=== PATIENT | female | born 1955 | race Caucasian/White ===

== ENCOUNTER 2018-07-20 11:51 | Day surgery (SDC) | payer MEDICARE, OTHER ==
[2018-07-20 12:55] LABS: Anisocytosis Slight; Basophils # (A) 0.1 k/uL (0-0.2); Basophils % (A) 1 %; Eosinophils # (A) 0.4 k/uL (0-0.7); Eosinophils % (A) 3 %; HCT 37.8 % (34.0-46.0); HGB 11.1 gm/dL (11.4-16.0); Hypochromasia Marked; Lymphocytes # (A) 1.5 k/uL (1.0-4.8); Lymphocytes % (A) 15 %; MCHC 29.5 g/dL (31.0-37.0); Macrocytosis Marked; Mean Platelet Volume 8.3; Monocytes # (A) 0.9 k/uL (0-1.0); Monocytes % (A) 9 %; Neutrophils # (A) 7.4 k/uL (1.3-7.7); Neutrophils % (A) 71 %; Platelet Count 218 k/uL (150-450); RDW 16.5 % (11.5-15.5); WBC 10.5 k/uL (3.8-10.6)
[2018-07-20 13:07] LABS: Albumin 3.1 g/dL (3.5-5.0); Anion Gap 9 mmol/L; Calcium 9.2 mg/dL (8.4-10.2); Carbon Dioxide 16 mmol/L (22-30); Chloride 116 mmol/L (98-107); Glucose 101 mg/dL (74-99); Sodium 141 mmol/L (137-145); Total Bilirubin 1.9 mg/dL (0.2-1.3); Total Protein 6.5 g/dL (6.3-8.2)
[2018-07-20 13:08] LABS: ALT 38 U/L (9-52); AST 87 U/L (14-36); Alkaline Phosphatase 145 U/L (38-126); Blood Urea Nitrogen 11 mg/dL (7-17); Potassium 4.7 mmol/L (3.5-5.1)
[2018-07-20 13:19] LABS: Poikilocytosis (M) Present; Polychromasia Present; Target Cells Present; Toxic Vacuolation Present
[2018-07-20 13:20] LABS: Large Platelets Present
[2018-07-20 13:33] LABS: INR 1.3 (<1.2); Prothrombin Time 12.6 sec (9.0-12.0)
[2018-07-20 13:51] VITALS: RESP 16; TEMP 97.6
[2018-07-20] MEDS: ALBUMIN HUMAN 25% 50 ML in EMPTY BAG 1 BAG IVPB SCH ×2 (15:18→15:29)
[2018-07-20 15:47] VITALS: BP 119/71; PULSE 82
[2018-07-21 19:43] LABS: Total Protein, Body Fluid 653 mg/dL
--- NOTE | 2018-07-27 08:58 | US ---
Therapeutic paracentesis. DATE OF EXAM: 07/20/2018 CLINICAL HISTORY: Ascites The procedure was discussed with the patient. The risks, complications, benefits, and alternatives we re discussed and any questions were answered. Informed consent was obtained. The patient was placed s upine on the ultrasound table and prepped and draped in the usual sterile fashion. All elements of maximal barrier technique were utilized. Under ultrasound guidance, access into the right lower quadrant was obtained, via the paracentesis catheter system and direct ultrasound guidanc e. Approximately 5.3 liters of straw-colored fluid was removed. The patient was stable throughout the pr ocedure and remained stable upon discharge from Department of Radiology. IMPRESSION: Successful therapeutic paracentesis under ultrasound guidance.
== END 2018-07-20 15:54 | disposition home or self-care (01) ==
LOC: RADPROMAIN 11:51
PROVIDERS: ATTEND Physician Assistant
DX: K74.60 Unspecified cirrhosis of liver (principal); R18.8 Other ascites
CPT/HCPCS: 88108; 88305; 80053; 85025; 85610; 82042; 82105; 82945; 83615; 84157; 49083; P9047

== ENCOUNTER 2018-08-18 11:42 | Day surgery (SDC) | payer MEDICARE ==
[2018-08-18 13:06] LABS: Mean Platelet Volume 8.2; Platelet Count 202 k/uL (150-450)
[2018-08-18 13:23] LABS: INR 1.5 (<1.2); Prothrombin Time 13.6 sec (9.0-12.0)
[2018-08-18 13:48] VITALS: RESP 16; TEMP 98.3
[2018-08-18] MEDS: ALBUMIN HUMAN 25% 50 ML in EMPTY BAG 1 BAG IVPB SCH ×3 (14:32→15:04)
--- NOTE | 2018-08-18 16:07 | US ---
EXAMINATION TYPE: US paracentesis abd w/image DATE OF EXAM: 08/18/2018 COMPARISON: NONE HISTORY: Ascites. PROCEDURE: Maximal barrier technique was utilized. The skin overlying a suitable pocket of fluid was localized with ultrasound and the overlying skin was prepped and draped. Ultrasound was utilized with sterile technique. Lidocaine was used for local anesthesia and a skin sajan made with a scalpel. Catheter was advanced under direct ultrasound guidance into a suitable pocket of fluid and approximately 7.9 liter s of serous fluid were removed. Catheter was withdrawn and hemostasis achieved. There is no immedia te complication; the patient is discharged in stable condition. IMPRESSION: STATUS POST ULTRASOUND GUIDED PARACENTESIS FOR PALLIATION OF ASCITES. THIS PROCEDURE WA S PERFORMED BY THE UNDERSIGNED.
[2018-08-18 16:13] VITALS: BP 117/64; PULSE 84
== END 2018-08-18 15:35 | disposition home or self-care (01) ==
LOC: RADPROMAIN 11:42
DX: R18.8 Other ascites (principal)
CPT/HCPCS: 82565; 85049; 85610; 49083; P9047

== ENCOUNTER 2018-09-19 08:36 | Day surgery (SDC) | payer MEDICARE ==
[2018-09-19 09:02] VITALS: RESP 20; TEMP 97.8
[2018-09-19 09:03] LABS: Mean Platelet Volume 7.1; Platelet Count 169 k/uL (150-450)
[2018-09-19 09:11] LABS: INR 1.5 (<1.2); Prothrombin Time 13.6 sec (9.0-12.0)
[2018-09-19] MEDS: ALBUMIN HUMAN 25% 50 ML in EMPTY BAG 1 BAG IVPB SCH ×4 (09:55→10:41)
[2018-09-19 11:38] VITALS: PULSE 74
[2018-09-19 11:54] VITALS: BP 92/57
--- NOTE | 2018-09-19 13:10 | US ---
EXAMINATION TYPE: US paracentesis abd w/image DATE OF EXAM: 09/19/2018 COMPARISON: NONE HISTORY: Ascites. PROCEDURE: Maximal barrier technique was utilized. The skin overlying a suitable pocket of fluid was localized with ultrasound and the overlying skin was prepped and draped. Ultrasound was utilized with sterile technique. Lidocaine was used for local anesthesia and a skin sajan made with a scalpel. Catheter was advanced under direct ultrasound guidance into a suitable pocket of fluid and approximately 8.4 liter s of serous fluid were removed. Catheter was withdrawn and hemostasis achieved. There is no immedia te complication; the patient is discharged in stable condition. IMPRESSION: STATUS POST ULTRASOUND GUIDED PARACENTESIS FOR PALLIATION OF ASCITES. THIS PROCEDURE WA S PERFORMED BY THE UNDERSIGNED.
== END 2018-09-19 12:00 | disposition home or self-care (01) ==
LOC: RADPROMAIN 08:36
DX: K70.31 Alcoholic cirrhosis of liver with ascites (principal)
CPT/HCPCS: 82565; 85049; 85610; 36415; 49083; P9047

== ENCOUNTER 2018-10-20 13:28 | Day surgery (SDC) | payer MEDICARE ==
[2018-10-20 13:47] VITALS: TEMP 97.5
[2018-10-20 13:56] LABS: Mean Platelet Volume 8.2; Platelet Count 169 k/uL (150-450)
[2018-10-20 14:19] LABS: INR 1.4 (<1.2); Prothrombin Time 13.2 sec (9.0-12.0)
[2018-10-20] MEDS: ALBUMIN HUMAN 25% 50 ML in EMPTY BAG 1 BAG IVPB SCH ×4 (14:49→15:37)
[2018-10-20 15:11] VITALS: RESP 18
[2018-10-20 15:55] VITALS: BP 103/64; PULSE 90
--- NOTE | 2018-10-20 16:52 | US ---
EXAMINATION TYPE: US paracentesis abd w/image DATE OF EXAM: 10/20/2018 COMPARISON: NONE HISTORY: Ascites. PROCEDURE: Maximal barrier technique was utilized. The skin overlying a suitable pocket of fluid was localized with ultrasound and the overlying skin was prepped and draped. Ultrasound was utilized with sterile technique. Lidocaine was used for local anesthesia and a skin sajan made with a scalpel. Catheter was advanced under direct ultrasound guidance into a suitable pocket of fluid and approximately 9 liters of serous fluid were removed. Catheter was withdrawn and hemostasis achieved. There is no immediate complication; the patient is discharged in stable condition. IMPRESSION: STATUS POST ULTRASOUND GUIDED PARACENTESIS FOR PALLIATION OF ASCITES. THIS PROCEDURE WA S PERFORMED BY THE UNDERSIGNED.
== END 2018-10-20 14:10 | disposition home or self-care (01) ==
LOC: RADPROMAIN 13:28
DX: R18.8 Other ascites (principal)
CPT/HCPCS: 82565; 85049; 85610; 36415; 49083; P9047

== ENCOUNTER 2018-10-20 16:37 | Emergency (ER) | payer MEDICARE, OTHER ==
[2018-10-20 16:46] VITALS: TEMP 97.4
[2018-10-20] MEDS ORDERED: ONDANSETRON 4 MG/2 ML VIAL IVP STA (17:35)
[2018-10-20] MEDS ORDERED: SODIUM CHLORIDE 0.9% 500 ML 500 ML IV STA (17:35)
[2018-10-20] MEDS ORDERED: SODIUM CHLORIDE 0.9% 1,000 ML IV STA (17:35)
--- NOTE | 2018-10-20 18:03 | ED ---
Abdominal Pain HPI - General Chief Complaint: Abdominal Pain Stated Complaint: Liver failure symptoms Time Seen by Provider: 10/20/18 17:08 Source: patient, RN notes reviewed, old records reviewed Mode of arrival: ambulatory Limitations: no limitations - History of Present Illness Initial Comments: Is a 62-year-old female with a history of alcohol and induced liver cirrhosis. She presents today after having 6 L of fluid removed from her abdomen. Patient is here with her sister and daughter. They state they want answers. They believe that there is something more going on with her besides the cirrhosis. They report that she's been increasingly confused. Patient reports that she receives. To send he says once a month. Patient states that this time she has lower abdominal cramping pain but generally feels better after the fluid was removed. Patient states that she has had chills but denies any specific fever. No vomiting. She's had normal stools. - Related Data Home Medications Medication Instructions Recorded Confirmed Lactulose [Constulose] 10 gm PO TID 07/11/18 10/20/18 Omeprazole [PriLOSEC] 20 mg PO [id number] PRN 07/11/18 10/20/18 Ibuprofen [Advil] 200 mg PO Q8HR PRN 07/12/18 10/20/18 Spironolactone [Aldactone] 25 mg PO BID 08/10/18 10/20/18 Furosemide [Lasix] 20 mg PO DAILY 09/13/18 10/20/18 Allergies Allergy/AdvReac Type Severity Reaction Status Date / Time amoxicillin Allergy Rash/Hives Verified 10/20/18 16:46 Review of Systems ROS Statement: Those systems with pertinent positive or pertinent negative responses have been documented in the HPI. ROS Other: All systems not noted in ROS Statement are negative. Past Medical History Past Medical History: Asthma, GERD/Reflux, Liver Disease, Thyroid Disorder Additional Past Medical History / Comment(s): Alcoholic liver cirrhosis History of Any Multi-Drug Resistant Organisms: None Reported Additional Past Surgical History / Comment(s): left Lung lobectomy - "I don't think it was cancer", paracentesis Past Anesthesia/Blood Transfusion Reactions: No Reported Reaction Past Psychological History: Anxiety, Depression, Panic Disorder, PTSD Smoking Status: Current every day smoker Past Alcohol Use History: Abuse Past Drug Use History: None Reported - Past Family History Father Family Medical History: Cancer Additional Family Medical History / Comment(s): lung and mother of lung CA General Exam - General Exam Comments Initial Comments: 62 year old female, no acute distress. Limitations: no limitations General appearance: alert, in no apparent distress Head exam: Present: atraumatic, normocephalic, normal inspection Eye exam: Present: normal appearance, PERRL, EOMI. Absent: scleral icterus, conjunctival injection, periorbital swelling ENT exam: Present: normal exam, mucous membranes moist Neck exam: Present: normal inspection. Absent: tenderness, meningismus, lymphadenopathy Respiratory exam: Present: normal lung sounds bilaterally. Absent: respiratory distress, wheezes, rales, rhonchi, stridor Cardiovascular Exam: Present: regular rate, normal rhythm, normal heart sounds. Absent: systolic murmur, diastolic murmur, rubs, gallop, clicks GI/Abdominal exam: Present: soft, normal bowel sounds. Absent: distended, tenderness, guarding, rebound, rigid Back exam: Present: normal inspection Neurological exam: Present: alert, oriented X3, CN II-XII intact Course Vital Signs 10/20/18 10/20/18 16:43 20:50 Temperature 97.4 F L Pulse Rate 100 110 H Respiratory 20 16 Rate Blood Pressure 101/61 100/61 O2 Sat by Pulse 100 100 Oximetry Medical Decision Making - Medical Decision Making Is a 62-year-old female with a history of alcohol and induced liver cirrhosis. She presents today after having 6 L of fluid removed from her abdomen. Patient is here with her sister and daughter. They state they want answers. They believe that there is something more going on with her besides the cirrhosis. They report that she's been increasingly confused. Patient is a alert and oriented. She has no abdominal tenderness, and reports she otherwise feels well. Patient has not been taking her lactulose. Patient ammonia level is elevated to 88. She is given dose of lactulose in ED. UA shows signs of UTI. Discussed placing patient on antibiotics. Discussed admission. Patient states she prefers to go home. They have follow up with PCP and GI specialist. - Lab Data Result diagrams: 10/20/18 19:28 10/20/18 19:28 Lab Results 10/20/18 10/20/18 10/20/18 Range/Units 19:28 19:28 19:28 WBC 7.0 (3.8-10.6) k/uL RBC 2.93 L (3.80-5.40) m/uL Hgb 10.4 L (11.4-16.0) gm/dL Hct 32.2 L (34.0-46.0) % MCV 110.0 H (80.0-100.0) fL MCH 35.4 H (25.0-35.0) pg MCHC 32.2 (31.0-37.0) g/dL RDW 17.4 H (11.5-15.5) % Plt Count 126 L (150-450) k/uL Neutrophils % 67 % Lymphocytes % 15 % Monocytes % 9 % Eosinophils % 6 % Basophils % 0 % Neutrophils # 4.7 (1.3-7.7) k/uL Lymphocytes # 1.1 (1.0-4.8) k/uL Monocytes # 0.6 (0-1.0) k/uL Eosinophils # 0.4 (0-0.7) k/uL Basophils # 0.0 (0-0.2) k/uL Hypochromasia Slight Anisocytosis Slight Macrocytosis Marked Target Cells Present PT (9.0-12.0) sec INR (<1.2) APTT (22.0-30.0) sec Sodium 135 L (137-145) mmol/L Potassium 4.0 (3.5-5.1) mmol/L Chloride 112 H (98-107) mmol/L Carbon Dioxide 14 L (22-30) mmol/L Anion Gap 9 mmol/L BUN 14 (7-17) mg/dL Creatinine 0.64 (0.52-1.04) mg/dL Est GFR (CKD-EPI)AfAm >90 (>60 ml/min/1.73 sqM) Est GFR (CKD-EPI)NonAf >90 (>60 ml/min/1.73 sqM) Glucose 112 H (74-99) mg/dL Plasma Lactic Acid Shalom 1.7 (0.7-2.0) mmol/L Calcium 9.1 (8.4-10.2) mg/dL Total Bilirubin 3.0 H (0.2-1.3) mg/dL AST 42 H (14-36) U/L ALT 25 (9-52) U/L Alkaline Phosphatase 115 (38-126) U/L Ammonia 85 H (<30) umol/L Total Protein 6.2 L (6.3-8.2) g/dL Albumin 3.3 L (3.5-5.0) g/dL Amylase 41 (30-110) U/L Lipase 300 (23-300) U/L Urine Color Urine Appearance (Clear) Urine pH (5.0-8.0) Ur Specific [place] (1.001-1.035) Urine Protein (Negative) Urine Glucose (UA) (Negative) Urine Ketones (Negative) Urine Blood (Negative) Urine Nitrite (Negative) Urine Bilirubin (Negative) Urine Urobilinogen (<2.0) mg/dL Ur Leukocyte Esterase (Negative) Urine RBC (0-5) /hpf Urine WBC (0-5) /hpf Ur Squamous Epith Cells (0-4) /hpf Amorphous Sediment (None) /hpf Urine Bacteria (None) /hpf Urine Mucus (None) /hpf 10/20/18 10/20/18 Range/Units 19:28 20:04 WBC (3.8-10.6) k/uL RBC (3.80-5.40) m/uL Hgb (11.4-16.0) gm/dL Hct (34.0-46.0) % MCV (80.0-100.0) fL MCH (25.0-35.0) pg MCHC (31.0-37.0) g/dL RDW (11.5-15.5) % Plt Count (150-450) k/uL Neutrophils % % Lymphocytes % % Monocytes % % Eosinophils % % Basophils % % Neutrophils # (1.3-7.7) k/uL Lymphocytes # (1.0-4.8) k/uL Monocytes # (0-1.0) k/uL Eosinophils # (0-0.7) k/uL Basophils # (0-0.2) k/uL Hypochromasia Anisocytosis Macrocytosis Target Cells PT 13.8 H (9.0-12.0) sec INR 1.5 H (<1.2) APTT 28.4 (22.0-30.0) sec Sodium (137-145) mmol/L Potassium (3.5-5.1) mmol/L Chloride (98-107) mmol/L Carbon Dioxide (22-30) mmol/L Anion Gap mmol/L BUN (7-17) mg/dL Creatinine (0.52-1.04) mg/dL Est GFR (CKD-EPI)AfAm (>60 ml/min/1.73 sqM) Est GFR (CKD-EPI)NonAf (>60 ml/min/1.73 sqM) Glucose (74-99) mg/dL Plasma Lactic Acid Shalom (0.7-2.0) mmol/L Calcium (8.4-10.2) mg/dL Total Bilirubin (0.2-1.3) mg/dL AST (14-36) U/L ALT (9-52) U/L Alkaline Phosphatase (38-126) U/L Ammonia (<30) umol/L Total Protein (6.3-8.2) g/dL Albumin (3.5-5.0) g/dL Amylase (30-110) U/L Lipase (23-300) U/L Urine Color Yellow Urine Appearance Cloudy H (Clear) Urine pH 7.0 (5.0-8.0) Ur Specific [place] 1.013 (1.001-1.035) Urine Protein Negative (Negative) Urine Glucose (UA) Negative (Negative) Urine Ketones Negative (Negative) Urine Blood Negative (Negative) Urine Nitrite Positive H (Negative) Urine Bilirubin Negative (Negative) Urine Urobilinogen <2.0 (<2.0) mg/dL Ur Leukocyte Esterase Negative (Negative) Urine RBC 2 (0-5) /hpf Urine WBC 6 H (0-5) /hpf Ur Squamous Epith Cells 1 (0-4) /hpf Amorphous Sediment Rare H (None) /hpf Urine Bacteria Moderate H (None) /hpf Urine Mucus Rare H (None) /hpf Disposition Clinical Impression: UTI (urinary tract infection), Increased ammonia level, Cirrhosis Disposition: HOME SELF-CARE Condition: Good Instructions: Cirrhosis (ED) Additional Instructions: Patient must be taking the lactulose as prescribed. Follow-up with your manager compensation. Return to emergency department if any alarming signs or symptoms occur. Is patient prescribed a controlled substance at d/c from ED?: No Referrals: Reymundo Macedo MD [Primary Care Provider] - 1-2 days Time of Disposition: 20:43
[2018-10-20 19:49] LABS: Anisocytosis Slight; Basophils % (A) 0 %; Eosinophils # (A) 0.4 k/uL (0-0.7); Eosinophils % (A) 6 %; HCT 32.2 % (34.0-46.0); HGB 10.4 gm/dL (11.4-16.0); Hypochromasia Slight; Lymphocytes # (A) 1.1 k/uL (1.0-4.8); Lymphocytes % (A) 15 %; MCH 35.4 pg (25.0-35.0); MCHC 32.2 g/dL (31.0-37.0); Macrocytosis Marked; Mean Platelet Volume 7.8; Monocytes # (A) 0.6 k/uL (0-1.0); Monocytes % (A) 9 %; Neutrophils # (A) 4.7 k/uL (1.3-7.7); Neutrophils % (A) 67 %; Platelet Count 126 k/uL (150-450); RBC 2.93 m/uL (3.80-5.40); RDW 17.4 % (11.5-15.5)
[2018-10-20 19:52] LABS: Amorphous Sediment,Urine Rare /hpf; Appearance,Urine Cloudy (Clear); Bacteria,Urine Moderate /hpf; Bilirubin,Urine Negative (Negative); Blood,Urine Negative (Negative); Color,Urine Yellow; Glucose,Urine (UA) Negative (Negative); Ketones,Urine Negative (Negative); Leukocyte Esterase,Urine Negative (Negative); Mucus,Urine Rare /hpf; Nitrite,Urine Positive (Negative); Protein,Urine Negative (Negative); RBC,Urine 2 /hpf (0-5); Specific Gravity,Urine 1.013 (1.001-1.035); Squamous Epithelial Cell,Urine 1 /hpf (0-4); Urobilinogen,Urine <2.0 mg/dL (<2.0); WBC,Urine 6 /hpf (0-5)
[2018-10-20 20:01] LABS: Lactic Acid, Venous 1.7 mmol/L (0.7-2.0)
[2018-10-20 20:02] LABS: ALT 25 U/L (9-52); AST 42 U/L (14-36); Albumin 3.3 g/dL (3.5-5.0); Alkaline Phosphatase 115 U/L (38-126); Amylase 41 U/L (30-110); Anion Gap 9 mmol/L; Blood Urea Nitrogen 14 mg/dL (7-17); Calcium 9.1 mg/dL (8.4-10.2); Carbon Dioxide 14 mmol/L (22-30); Chloride 112 mmol/L (98-107); Glucose 112 mg/dL (74-99); Lipase 300 U/L (23-300); Sodium 135 mmol/L (137-145); Total Protein 6.2 g/dL (6.3-8.2)
[2018-10-20] MEDS ORDERED: LACTULOSE 20 GM/30 ML CUP PO ONE (20:12)
[2018-10-20 20:29] LABS: INR 1.5 (<1.2); Partial Thromboplastin Time 28.4 sec (22.0-30.0); Prothrombin Time 13.8 sec (9.0-12.0)
[2018-10-20 20:36] LABS: Target Cells Present
[2018-10-20 20:53] VITALS: BP 100/61; PULSE 110; RESP 16
== END 2018-10-20 21:19 | disposition home or self-care (01) ==
LOC: EC 16:37
DX: N39.0 Urinary tract infection, site not specified (principal); K74.60 Unspecified cirrhosis of liver; R79.89 Other specified abnormal findings of blood chemistry; F17.200 Nicotine dependence, unspecified, uncomplicated; Z87.19 Personal history of other diseases of the digestive system; Z79.899 Other long term (current) drug therapy; Z88.0 Allergy status to penicillin
CPT/HCPCS: 99284 ×2; 96374 ×2; 96361 ×2; 36415 ×2; 80053; 82140; 82150; 82565; 83605; 83690; 85025; 85049; 85610; 85730; 81001; 87040; 87086; 87077; 87186; 49083; J2405; P9047

== ENCOUNTER 2018-10-27 07:32 | Day surgery (SDC) | payer MEDICARE, OTHER ==
[2018-10-27 08:44] VITALS: RESP 20; TEMP 97.9
[2018-10-27 08:49] LABS: Mean Platelet Volume 7.6; Platelet Count 176 k/uL (150-450)
[2018-10-27 09:01] LABS: INR 1.2 (<1.2); Prothrombin Time 11.7 sec (9.0-12.0)
[2018-10-27] MEDS: ALBUMIN HUMAN 25% 50 ML in EMPTY BAG 1 BAG IVPB SCH ×4 (09:32→10:22)
[2018-10-27 10:15] VITALS: BP 109/58; PULSE 96
--- NOTE | 2018-10-27 11:37 | US ---
Therapeutic paracentesis. DATE OF EXAM: 10/27/2018 CLINICAL HISTORY: Ascites The procedure was discussed with the patient. The risks, complications, benefits, and alternatives we re discussed and any questions were answered. Informed consent was obtained. The patient was placed s upine on the ultrasound table and prepped and draped in the usual sterile fashion. All elements of maximal barrier technique were utilized. Under ultrasound guidance, access into the right lower quadrant was obtained, via the paracentesis catheter system and direct ultrasound guidanc e. Approximately 7.35 liters of straw-colored fluid was removed. The patient was stable throughout the p rocedure and remained stable upon discharge from Department of Radiology. IMPRESSION: Successful therapeutic paracentesis under ultrasound guidance.
== END 2018-10-27 10:45 | disposition home or self-care (01) ==
LOC: RADPROMAIN 07:32
DX: R18.8 Other ascites (principal)
CPT/HCPCS: 82565; 85049; 85610; 36415; 49083; P9047